=== PATIENT | female | born 1935 | race Caucasian/White ===

== ENCOUNTER → 2017-12-03 | Outpatient (CLI) | payer OTHER ==
[~2017-12-03] MED LIST: ASPI81EC PO; ERGO400 PO; FISH1000 PO; LEVSOD25 PO; LISHYD2012 PO; MULVITA PO; NEBI10 PO; TRAM50 PO
== END ==
LOC: LAB EV 11:44
DX: L02.419 Cutaneous abscess of limb, unspecified (principal)
CPT/HCPCS: 87070; 87205

== ENCOUNTER 2020-11-26 08:46 | Inpatient (IN) | payer OTHER ==
[~2020-11-26] VITALS: Ht 162.6 cm; Wt 64.1 kg
[~2020-11-26 08:46] MED LIST changes: -ASPI81EC PO; +ATOR80 PO; +Aspirin EC81 MG PO; +BENADRYL25 MG PO; +Bystolic20 MG PO; +CALCIUM CIT 311 EACH PO; +CARV25 PO; +CLOP75 PO; +LOPE2C PO; +ONDA4ODT MM; +PLAVIX75 MG PO; +TOCO1000 PO; +ZESTRIL40 M1 PO
[2020-11-26 09:07] LABS: BASOPHILS ABSOLUTE AUTO 0.05 K/mm3 (0.00-0.23); BASOPHILS PERCENT AUTO 1 % (0-2); EOSINOPHILS ABSOLUTE AUTO 0.13 K/mm3 (0.00-0.68); EOSINOPHILS PERCENT AUTO 2 % (0-6); Hematocrit 38.8 % (33.0-51.0); Hemoglobin 12.6 g/dL (11.5-16.0); IMMATURE GRAN ABSOLUTE AUTO 0.01 K/mm3 (0.00-0.10); IMMATURE GRAN PERCENT AUTO 0 % (0-1); LYMPHOCYTES ABSOLUTE AUTO 1.42 K/mm3 (0.84-5.20); LYMPHOCYTES PERCENT AUTO 24 % (21-46); MONOCYTES ABSOLUTE AUTO 1.02 K/mm3 (0.16-1.47); MONOCYTES PERCENT AUTO 17 % (4-13); Mean Corpuscular HGB 30.6 pg (26.0-34.0); Mean Corpuscular HGB Conc 32.5 g/dL (31.5-36.5); Mean Corpuscular Volume 94 fL (80-100); Mean Platelet Volume 9.7 fL (9.1-12.4); NEUTROPHILS ABSOLUTE AUTO 3.25 K/mm3 (1.96-9.15); NEUTROPHILS PERCENT AUTO 55 % (41-73); Platelet Count 233 K/mm3 (150-400); RDW Coefficient Variation 12.8 % (11.7-14.2); RDW Standard Deviation 44.3 fL (35.1-46.3); Red Blood Cell Count 4.12 M/mm3 (3.80-5.20); White Blood Cell Count 5.88 K/mm3 (4.00-11.30)
[2020-11-26 09:31] LABS: Albumin, Blood 2.8 g/dL (3.4-5.0); Albumin/Globulin Ratio 0.8 (0.8-1.8); Bilirubin, Total 0.4 mg/dL (0.1-1.0); Bun/Creatinine Ratio 18.4 (12.0-20.0); Calcium, Blood 9.1 mg/dL (8.5-10.1); Creatinine, Blood 0.98 mg/dL (0.40-1.00); Globulin, Blood 3.6 g/dL (2.2-4.0); Potassium, Blood 4.3 mmol/L (3.5-5.5); Total Protein, Blood 6.4 g/dL (6.4-8.2); Troponin I 0.275 ng/mL (0.000-0.040)
[2020-11-26 11:18] LABS: Free Thyroxine 1.4 ng/dL (0.70-1.60); Thyroid Stimulating Hormone 1.63 uIU/mL (0.360-4.800)
--- NOTE | 2020-11-26 19:44 | NUR ---
SUMMARY NO ACUTE CHANGES NOTED SINCE ADMISSION TO THE FLOOR, PT HAS DENIED ANY CP/PRESSURE, VSS, ON RA, CURRENLY IN SINUS R @ 68. CARDIOLOGY CONSULT CALLED PER DUE TO INCREASED TROPONIN LEVELS. PT IS A&O X4, RESP UNLABORED, RESTING QUIETLY IN BED, CALL LIGHT IN REACH. BED ALARM IS ON FOR SAFETY. PT ENC TO CALL DUE TO SYNCOPE EPISODES. REPORT GIVEN TO FERNANDO ORTEGA
--- NOTE | 2020-11-27 03:11 | NUR ---
SYNCOPAL EPISODE PT WAS UP TO BEDSIDE COMMODE AND HR DROPPED TO 40'S. PT WENT UNCONSCIOUS AND SLUMPED OVER. PT WAS SAT BACK UP, O2 VIA NC WAS PUT ON, PT STIMULATED WITH STURNAL RUB AND RESPONDED WITH GROAN. O2 SATS REMAINED ABOVE 90%, BP REMAINED ABOVE 166 SYSTOLIC. HR WAS IN THE 40'S FOR LESS THAN A MINUTE AND CAME BACK UP TO THE 60'S SLOWLY OVER ABOUT 3MIN. PT WAS PICKED UP AND PUT BACK IN BED. SKIN WAS COOL AND CLAMMY. PT BECAME MORE RESPONSIVE AND WAS ABLE TO ANSWER QUESTIONS. PT STATED FEELING NAUSEOUS, GAVE PRN ZOFRAN. PT STATED FEELING BAD AND REMAINED LAYING IN BED WITH HOB ELEVATED. WHOLE EVENT LASTED ABOUT 15 MINUTES FROM TIME PT HAD SYNCOPAL EPISODE TO TIME PT EAS COMFORTABLE AND SITTING IN BED. DROP IN HR MOST LIKLY CAUSED BY VAGAL STIMULATION ON COMMODE.
--- NOTE | 2020-11-27 07:41 | NUR ---
SHIFT SUMMARY PT WAS ALERT AND ORIENTED THROUGH MOST OF THE SHIFT. PT HAD A SYNCOPAL EPISODE WHEN UP TO BEDSIDE COMMODE, SEE PT NOTES. PT OTHERWISE COMFORTABLE. BP BECAME HYPERTENSIVE WHITH SYNCOPAL EPISODE UP TO 198/74. ORTHOSTATIC BP WAS POSITIVE. BP RANGED FROM 107-198 SYSTOLIC T/O SHIFT. HR IN THE 60'S OTHER THAN WHEN PT HAD DORY EPISODE INTO THE 40'S WITH PAUSES. PT STATED FEELING MUCH BETTER BY AM. ON ROOM AIR WITH O2 SATS IN THE 90'S.
--- NOTE | 2020-11-27 07:48 | NUR ---
AM NOTE A&Ox4; CALM AND COOPERATIVE WITH CARE. PT RESTING IN BED DURING SHIFT, PLANS FOR BEDREST. PT DENIES PAIN, CHEST PAIN, SOB, NAUSEA AND DIZZINESS (AT REST). DR QUIROZ TO BEDSIDE DISCUSSING THE OPTION OF PACEMAKER; PT PLANS TO DISCUSS WITH FAMILY PRIOR TO MAKING DECISION. EDUCATED PT ON PROCEDURE; QUESTIONS ANSWERED. PT ASKED TO GET UP TO BSC; PT EDUCATED ON PLANS FOR BEDREST AND PLACED ON BEDPAN. PER DR QUIROZ ORDERS, ATRIPINE AND EPI AT BEDSIDE AND APIXABAN D/C. VSS. WILL CONTINUE TO MONITOR.
--- NOTE | 2020-11-27 14:43 | NUR ---
ADMIT: 11/26/20 DISCHARGE: DX: Afib with RVR CC: [email or web address] ADMIT: 11/21/20 DISCHARGE: 11/24/20 DX: PANCREATITIS, ACUTE ADMIT: 11/17/20 DISCHARGE: 11/18/20 DX: CVA UMA CALL: PT AT HOME @ [phone] RESIDENCE: Home CAREGIVER: self DX: CAD, CKD-stage 3, HTN, Afib, see list DME: None CCM: None HOME HEALTH: None SUMMARY: Admit: 11/26/20 11/27/20- Pt has been readmitted. PT and OT have been ordered to be completed to ensure a safe d/c. Per chart review, pt had syncopal episode in the middle of the night last night and cardiology has been asked to consult to have pacemaker placed. If pt consents, she will be scheduled for for procedure. PT and OT will be held until after pacemaker has been placed.SPoke with pt and she is agreeable to have a pacemaker.-kjw ASSESSMENT: 1. Syncope with ground level fall, likely cardiac. 2. Acute coronary syndrome. 3. Atrial fibrillation with rapid ventricular response. 4. Mild acute diastolic congestive heart failure. 5. Hypertension. 6. Hyperlipidemia. 7. Recent hospitalization for transient ischemic attack. 8. Rest recent hospitalization for acute pancreatitis, which was presumed to be due to atorvastatin. 9. Hypothyroidism. PLAN: 1. Admit to [facility]. 2. Observation status. 3. Her CHADS2 score is at least 4. Therefore, I discussed with the patient the benefits and risks of starting anticoagulation therapy. The patient has agreed and at present I will start her on Eliquis 5 mg b.i.d. 4. I will hold off on her aspirin and Plavix since Eliquis is being started. 5. We will resume her home medications including beta blockers, LAURA inhibitors and thyroid replacement therapy. 6. We will start her on IV diuretics. 7. Cardiology consultation will be obtained. In view of significantly elevated troponins and new onset atrial fibrillation. 8. I will defer to Cardiology in view of adding any other rate controlled medications besides continuing Coreg. 9. Gastrointestinal prophylaxis with Pepcid. 10. OT and PT evaluation for safe discharge coordination since this is her 3rd hospitalization in 10 days. 11. We will follow up with Cardiology recommendations. 12. I will not order an echocardiogram since it was done one week ago. ADMIT 11/21/20 11/25/20- PER CHART NOTE FROM DR. LARKIN ON 11/23/20, PT WAS NOT READY TO DISCHARGE ON 11/23/20. SHE STAYED ANOTHER NIGHT AND WAS D/C ON 11/24/20. -[facility] 11/23/20- PER CHART REVIEW WITH DR. LARKIN, PT IS SCHEDULED TO BE D/C TODAY. WENT AND SPOKE WITH PT, REVIEWED THE UMA LETTER WITH HER. SHE STATED THAT HER STEP-DAUGHTER IS UP HERE FROM [place] AND SHE WOULD BE THE ONE TO COME GET HER. HER STEP-DAUGHTER CAN HELP INCOME TAX ANALYST HER MEDICATIONS. SHE DIDN'T NOT IDENTIFY ANY CARE NEEDS AT HER HOME AT THIS TIME. SHE ASKED THAT UMA CALL BE PLACED TO HER. SHE ACKNOWLEDGED UNDERSTANDING OF THE UMA LETTER. -[facility] 11/22/20- PER CHART REVIEW WITH DR. LARKIN, EVERYTHING HAS BEEN PLACED ON HOLD DUE TO PT'S CODE BLUE. HE WOULD LIKE TO HAVE THE PT OBSERVED TO DETERMINE THE TYPE OF CARE SHE WILL NEED. SHE WAS A RE-ADMIT. NO EST ETA FOR DISCHARGE AT THIS TIME. -[facility] 11/22/19 CODE BLUE CALLED, POSSIBLE VASO VAGEL, MOVED TO ICU 7 FOR OBSERVATION. -[facility] ADMIT: 11/17/20 11/18/20- PER DR. BAKER, PT IS GOING TO BE D/C TODAY. PT WAS ADMITTED IN THE MIDDLE OF THE NIGHT FOR OBSERVATION. SHE HAD AN ECHOCARDIOGRAM COMPLETED TODAY. SPOKE WITH PT, REVIEWED UMA LETTER. SHE WILL HAVE HER COUSIN TAKE HER HOME. SHE CAN ALL ON HER FAMILY IN THE AREA OF SHE NEEDS HELP. SHE WOULD LIKE AN INPERSON VISIT FOR TO FOLLOW-UP APPT. PT ACKNOWLEDGED UNDERSTANDING OF THE UMA LETTER AND DID NOT IDENTIFY ANY NEEDS AT THIS TIME.-MCKENNA
--- NOTE | 2020-11-27 18:22 | NUR ---
SHIFT SUMMARY PT A&Ox4;CALM AND COOPERATIVE WITH CARE. PT ON BEDREST; BEDPAN IN BED. PT DENIES PAIN, CHEST PAIN, NAUSEA, DIZZINESS (AT REST) AND SOB. NO EVENT ON TELE DURING SHIFT. ELEVATED BP NOTED, VSS. NO OTHER ACUTE CHANGES NOTED. PT AGREEABLE TO HAVE PACEMAKER PLACED. WILL CONTINUE TO MONITOR UNTIL REPORT GIVEN TO ONCOMING RN.
[2020-11-28 04:55] LABS: International Normalized Ratio 1.04; Prothrombin Time Results 11.1 Sec (9.7-11.5)
--- NOTE | 2020-11-28 07:25 | NUR ---
SHIFT SUMMARY: PATIENT A/OX3. HAS DENIED PAIN THROUGHOUT THE SHIFT. NO CHANGES ON TELE, SINUS RHYTHM WITH PACS IN THE 60'S. HAS DENIED CHEST PAIN, DIZZINESS, AND LIGHTHEADEDNESS. BEDREST. HEPARIN INFUSING PER EMAR. PLAN IS FOR PACEMAKER PLACEMENT ON THURSDAY. REPORT GIVEN TO ONCOMING RN.
--- NOTE | 2020-11-28 11:10 | NUR ---
AM NOTE PT A&Ox4; CALM AND COOPERATIVE WITH CARE. BEDREST; PT USING BEDPAN. NO TELE EVENTS NOTED. PT DENIES PAIN, CHEST PAIN, NASUEA, SOB, AND DIZZINESS. VSS. NO OTHER ACUTE CHANGES NOTED. WILL CONTINUE TO MONITOR.
--- NOTE | 2020-11-28 18:12 | NUR ---
SHIFT SUMMARY NO CHANGES T/O SHIFT. PT CONTINUES ON BEDREST. DENIES PAIN, SOB, NAUSEA AND DIZZINESS. VSS. NO OTHER ACUTE CHANGES NOTED DURING SHIFT. WILL CONTINUE TO MONITOR UNITL REPORT GIVEN TO ONCOMING RN.
--- NOTE | 2020-11-28 19:20 | NUR ---
ASSUMED CARE RECEIVED BEDSIDE REPORT FROM SHANNON CLAYTON; PT ALERT AND CONVERSING W/ STAFF; VSS; NSR NOTED ON TELE; HGP GTT VERIFIED @ 11 U/KG/HR; EDUCATION PROVIDED ON NPO AT MIDNIGHT IN PREPARATION FOR PROCEDURE; NO DISTRESS NOTED; CALL LIGHT IN REACH; BED IN LOWEST POSITION.
[2020-11-28 22:30] LABS: Influenza A, PCR Negative (NEGATIVE); Influenza B, PCR Negative (NEGATIVE); Resp Syncytial Virus, PCR Negative (NEGATIVE); SARS-Cov-2 (COVID-19) PCR, MMC Negative (NEGATIVE)
[2020-11-29 02:03] LABS: BASOPHILS ABSOLUTE AUTO 0.05 K/mm3 (0.00-0.23); BASOPHILS PERCENT AUTO 1 % (0-2); EOSINOPHILS PERCENT AUTO 3 % (0-6); Hematocrit 35.6 % (33.0-51.0); Hemoglobin 11.8 g/dL (11.5-16.0); IMMATURE GRAN ABSOLUTE AUTO 0.01 K/mm3 (0.00-0.10); IMMATURE GRAN PERCENT AUTO 0 % (0-1); LYMPHOCYTES ABSOLUTE AUTO 2.36 K/mm3 (0.84-5.20); LYMPHOCYTES PERCENT AUTO 34 % (21-46); MONOCYTES ABSOLUTE AUTO 0.99 K/mm3 (0.16-1.47); MONOCYTES PERCENT AUTO 14 % (4-13); Mean Corpuscular HGB 30.3 pg (26.0-34.0); Mean Corpuscular HGB Conc 33.1 g/dL (31.5-36.5); Mean Corpuscular Volume 91 fL (80-100); Mean Platelet Volume 9.5 fL (9.1-12.4); NEUTROPHILS ABSOLUTE AUTO 3.38 K/mm3 (1.96-9.15); NEUTROPHILS PERCENT AUTO 48 % (41-73); Platelet Count 270 K/mm3 (150-400); RDW Coefficient Variation 12.2 % (11.7-14.2); RDW Standard Deviation 41.1 fL (35.1-46.3); White Blood Cell Count 6.99 K/mm3 (4.00-11.30)
[2020-11-29 02:19] LABS: International Normalized Ratio 1.01; Prothrombin Time Results 10.8 Sec (9.7-11.5)
[2020-11-29 02:20] LABS: Albumin, Blood 2.8 g/dL (3.4-5.0); Albumin/Globulin Ratio 0.8 (0.8-1.8); Bilirubin, Total 0.4 mg/dL (0.1-1.0); Calcium, Blood 8.8 mg/dL (8.5-10.1); Creatinine, Blood 1.27 mg/dL (0.40-1.00); Globulin, Blood 3.4 g/dL (2.2-4.0); Total Protein, Blood 6.2 g/dL (6.4-8.2)
--- NOTE | 2020-11-29 06:20 | NUR ---
SHIFT SUMMARY PT A&O; FORGETFUL AT TIMES; STATES SHE DOES NOT KNOW WHAT MEDS SHE TAKES AND STATES THEY HAVE BEEN CHANGED NUMEROUS TIMES; EDUCATED PT ON PO MEDS, ADDITIONAL FOLLOW UP NEEDED; VSS; NSR NOTED ON TELE W/ HR 60'S; HEP GTT @ 11 U/KG/HR; DENIES CHEST PAIN; PT ON STRICT BEDREST; ABLE TO RAISE HIPS FOR BEDPAN USE; PT STATES SHE HAS NOT HAD A BOWEL MOVEMENT FOR A WEEK; PRUNE JUICE BROUGHT TO PT SHE STATES SHE WOULD LIKE TO TRY THAT FIRST BEFORE STARTING A MEDICATION; O2 SATS >93 ON RA; DENIES SOB; COVID SWAB NEGATIVE FOR SEALER OPERATOR PROCEDURE; PT NPO AT MIDNIGHT IN PREPARATION; CALL LIGHT IN REACH; BED IN LOWEST POSITION; WILL CONTINUE TO MONITOR CLOSELY UNTIL HAND OFF TO DAY SHIFT RN.
--- NOTE | 2020-11-29 14:37 | NUR ---
Pt arrived from [facility] following pacemaker surgery. She is awake, alert, and oriented. Vital signs stable. Left chest wall surgical site is without bleeding, bruising or swelling. Dressing is clean, dry and intact. Pt was assisted up to bedside commode to void at this time. Her daughter is at the bedside. PT is c/o burning feeling in her throat, and asking for ice water to drink, which was given to her. STates she was given anti nausea medication in the [facility] before returning to PCU. Jennifer ORTEGA from [facility] told me that the pt received 4 mg of zofran.
--- NOTE | 2020-11-29 17:55 | NUR ---
NO ACUTE EVENTS THIS SHIFT. VSS, PATIENT ALERT AND ORIENTED. PATIENT WENT FOR PACEMAKER PLACEMENT TODAY, TOLERATED WELL. UPON RETURN VSS, NO SIGNS OF DISCHARGE AT PACER SURGICAL SITE. PATIENT'S L. ARM IN SLING, PATIENT INSTRUCTED IN MOVEMENT RESTRICTIONS POST-PACEMAKER PLACEMENT. PATIENT ENDORSES SOME PAIN, ENDORSES RELIEF WITH TYLENOL ADMIN PER EMAR.
--- NOTE | 2020-11-30 06:03 | NUR ---
SHIFT SUMMARY PT A&O X 3-4; PT STATES SHE CANNOT KEEP TRACK OF NEW MEDS / DAY / AND STATES SHE FEELS HER "MIND IS SLIPPING"; VSS; NSR NOTED ON TELE; ICE PACK BROUGHT TO PT FOR PAIN / SWELLING; TYLENOL ADMINISTERED PER EMAR; CEFAZOLIN IV ADMINISTERED X 2 POST PACER PROTOCOL; O2 SATS >93 ON RA; DENIES SOB; CALL LIGHT IN REACH; BED IN LOWEST POSITION; WILL CONTIUE TO MONITOR CLOSELY UNTIL HAND OFF TO DAY SHIFT RN.
--- NOTE | 2020-11-30 14:47 | NUR ---
ADMIT: 11/26/20 DISCHARGE: DX: Afib with RVR CC: [email or web address] ADMIT: 11/21/20 DISCHARGE: 11/24/20 DX: PANCREATITIS, ACUTE ADMIT: 11/17/20 DISCHARGE: 11/18/20 DX: CVA UMA CALL: PT AT HOME @ [phone] RESIDENCE: Home CAREGIVER: self DX: CAD, CKD-stage 3, HTN, Afib, see list DME: None CCM: None HOME HEALTH: None SUMMARY: Admit: 11/26/20 11/30/20- PT and OT saw pt today, they are recommending Home Health come into the home and address barriers that are in the home. They also report that the pt granddaughter is up from [place] staying with her. Est ETA for d/c at this time is delayed until Thursday per doctor due to orthostatics. -guillermina
--- NOTE | 2020-11-30 16:26 | NUR ---
ADMIT: 11/26/20 DISCHARGE: DX: Afib with RVR CC: kwilcox ADMIT: 11/21/20 DISCHARGE: 11/24/20 DX: PANCREATITIS, ACUTE ADMIT: 11/17/20 DISCHARGE: 11/18/20 DX: CVA UMA CALL: PT AT HOME @ [phone] RESIDENCE: Home CAREGIVER: self DX: CAD, CKD-stage 3, HTN, Afib, see list DME: None CCM: None HOME HEALTH: None SUMMARY: Admit: 11/26/20 11/30/20- PT and OT saw pt today, they are recommending Home Health come into the home and address barriers that are in the home. They also report that the pt granddaughter is up from [place] staying with her. Est ETA for d/c at this time is delayed until Thursday per doctor due to orthostatics. Reviewed UMA letter with pt. She acknowledged understanding. Pt asked for brochures for home health. Handed them to pt and step-daughter was in the room. She stated that they are not comfortable with the pt living on her own anymore and they are looking at assisted living places. Provided her a list of facilities to contact.-guillermina
--- NOTE | 2020-11-30 17:46 | NUR ---
NO SIGNS OF DISCHARGE AT PACER SURGICAL SITE. PATIENT WORKED WITH PT/OT THIS SHIFT, PATIENT ENDORSED FEELING LIGHTHEADED WITH AMBULATION. POSITIVE FOR ORTHOSTATIC VITALS, PATIENT HAD TO SIT DOWN FROM STANDING AT ONE POINT THIS SHIFT DUE TO DIZZINESS. PATIENT IS ALERT AND ORIENTED, COOPERATIVE WITH CARE AND MOTIVATED TO PARTICIPATE IN RANGE OF MOTION WITH LEFT ARM, PATIENT IS CAREFUL TO FOLLOW ACTIVITY PRECAUTIONS. PATIENT SITTING UP AT EDGE OF BED FOR DINNER, TOLERATING WELL. PATIENT ENDORSED SOME PAIN THIS SHIFT, RELIEF NOTED WITH TYLENOL.
[2020-12-01 04:53] LABS: BASOPHILS ABSOLUTE AUTO 0.06 K/mm3 (0.00-0.23); BASOPHILS PERCENT AUTO 1 % (0-2); EOSINOPHILS ABSOLUTE AUTO 0.23 K/mm3 (0.00-0.68); EOSINOPHILS PERCENT AUTO 2 % (0-6); Hematocrit 37.4 % (33.0-51.0); Hemoglobin 12.4 g/dL (11.5-16.0); IMMATURE GRAN ABSOLUTE AUTO 0.03 K/mm3 (0.00-0.10); IMMATURE GRAN PERCENT AUTO 0 % (0-1); LYMPHOCYTES ABSOLUTE AUTO 1.64 K/mm3 (0.84-5.20); LYMPHOCYTES PERCENT AUTO 15 % (21-46); MONOCYTES ABSOLUTE AUTO 0.97 K/mm3 (0.16-1.47); MONOCYTES PERCENT AUTO 9 % (4-13); Mean Corpuscular HGB 30.5 pg (26.0-34.0); Mean Corpuscular HGB Conc 33.2 g/dL (31.5-36.5); Mean Corpuscular Volume 92 fL (80-100); Mean Platelet Volume 9.4 fL (9.1-12.4); NEUTROPHILS ABSOLUTE AUTO 8.03 K/mm3 (1.96-9.15); NEUTROPHILS PERCENT AUTO 73 % (41-73); Platelet Count 297 K/mm3 (150-400); RDW Coefficient Variation 12.3 % (11.7-14.2); RDW Standard Deviation 41.8 fL (35.1-46.3); Red Blood Cell Count 4.07 M/mm3 (3.80-5.20); White Blood Cell Count 10.96 K/mm3 (4.00-11.30)
[2020-12-01 05:22] LABS: Bun/Creatinine Ratio 21.1 (12.0-20.0); Calcium, Blood 9.4 mg/dL (8.5-10.1); Creatinine, Blood 1.42 mg/dL (0.40-1.00); Potassium, Blood 4.4 mmol/L (3.5-5.5)
--- NOTE | 2020-12-01 06:38 | NUR ---
SHIFT SUMMARY NO ACUTE CHANGES THIS SHIFT. PT A&OX4. SP02>92% ON RA. TELEMETRY READS SR, HR 80'S. PT POST PACEMAKER IMPLANT, DRESSING C/D/I. PT WORE L ARM IN SLING T/O NIGHT. PT DENIED PAIN. PT SLEPT MOST OF SHIFT. CALL LIGHT IN REACH. WILL GIVE REPORT TO ONCOMING NURSE.
--- NOTE | 2020-12-01 17:25 | NUR ---
NO ACUTE EVENTS THIS SHIFT. PATIENT POSITIVE FOR ORTHOSTATIC VITALS WHILE WORKING WITH PHYSICAL THERAPY THIS SHIFT, DR. COBOS NOTIFIED. PATIENT COMPLAINED OF 4/10 PAIN L. CHEST WALL AND SHOULDER, RELIEF NOTED WITH TYLENOL PER EMAR. PATIENT ALERT AND ORIENTED, COOPERATIVE WITH CARE. PATIENT DENIED CHEST PAIN THIS SHIFT, NO NEW DISCHARGE NOTED AT PACER SURGICAL SITE.
--- NOTE | 2020-12-02 05:52 | NUR ---
SHIFT SUMMARY NO ACUTE CHANGES THIS SHIFT. PT A&OX4. SP02>92% ON RA. TELEMETRY READS PACED, HR 70'S. PT IS POST PACE MAKER INSERTION, L CHEST DRESSING C/D/I. PT WORE ARM IN SLING CONTINUOUSLY T/O NIGHT. PT DENIES PAIN. PT SLEPT ALMOST THE ENTIRE SHIFT EXCEPT FOR UP TO BSC AND VITALS. PT DID C/O OF NOT HAVING A BM FOR A WEEK. CALL PLACED TO MD CRZU FOR BOWEL CARE. BOWEL CARE TO START IN AM. CALL LIGHT IN REACH. WILL GIVE REPORT TO ONCOMING SHIFT NURSE.
--- NOTE | 2020-12-02 18:17 | NUR ---
SHIFT SUMMARY PT IS ALERT AND ORIENTEDx4. PACER INCISION SITE C/D/I, SLING REMAINS IN PLACE. TODAY PT WAS C/O CONSTIPATION, BOWEL CARE ORDERS RECIEVED AND PT HAD SMALL BM TODAY. THIS MORNING PT REPORTED DIZZINESS WITH SITTING AND STANDING. THIS EVENING PT REPORTS DIZZINESS IS IMPROVING. IVF STARTED THIS EVENING x1 LITER PER ORDERS. TELEMETERY WAS SHOWING SINUS RHYTHM, VITALS HAVE REMAINED STABLE. PT'S STATUS WAS CHANGED TO MEDICAL WITH TELEMETERY TODAY.
--- NOTE | 2020-12-03 05:24 | NUR ---
SHIFT SUMMARY NO ACUTE CHANGES THIS SHIFT. PT A&OX4. SP02 >92% ON RA. TELEMETRY READS SR, HR 70'S. ORTHOSTATIC BP DONE BEGINNING OF SHIFT W/ 18 POINT SYSTOLIC CHANGE. PT DENIED ANY DIZZINESS THIS SHIFT WHILE STANDING, BUT STATED SHE DID EXPERIENCE IT DURING THE DAY. PT POST PACEMAKER (11/29), DRESSING C/D/I. PT WORE ARM SLING ALL SHIFT. PT C/O OF L SHOULDER PAIN ONLY WHEN AMBULATING, STATED NO PAIN AT REST. PT UP TO BSC MULTIPLE TIMES THIS SHIFT W/ MINIMAL ASSISTANCE. IV FLUIDS INFUSED PER EMAR. CALL LIGHT IN REACH. WILL GIVE REPORT TO ONCOMING SHIFT.
--- NOTE | 2020-12-03 14:49 | NUR ---
SUMMARY: ADMIT: 11/26/20 12/03/20- PER CHART REVIEW WITH DR. KNOX, PT DID WELL WITH PT AND OT, SO THE RECOMMENDATION FOR SNF HAS CHANGED TO HOME HEALTH. VISITED WITH PT TODAY, SHE WILL BE GOING TO STAY WITH HER NIECE UNTIL THEY FIND AN ASSISTED LIVING PLACE FOR THE PATIENT AND THEN WILL SELL HER HOME. EST. ETA FOR DISCHARGE IS TOMORROW. PT'S STEP-DAUGHTER JESSE MAC ASKED TO SPEAK WITH THE DOCTOR. PROVIDED HIM WITH HER CONTACT INFORMATION. -MCKENNA 12/02/20- PER CHART REVIEW WITH DR. COBOS, PT IS NOW RECOMMENDING SNF DUE TO PT DECONDITIONING. EST. ETA FOR DISCHARGE PER DOCTOR WILL BE THURSDAY OR THURSDAY. -MCKENNA
--- NOTE | 2020-12-03 17:59 | NUR ---
SHIFT SUMMARY: PATIENT IS ALERT AND ORIENTED X4. SHE IS ON ROOM AIR AND TELE IS SHOWING SINUS RHYTHM. VITAL SIGNS STABLE. L CHEST DRESSING FROM PACER PLACED ON 11/29. DRESSING C/D/I. PT REPORTS MINIMAL SORNESS BUT DENIES CHEST PAIN AND PRESSURE. PT WEARING AND COMPLIENT WITH ARM SLING THIS SHIFT. DAUGHTER IN LAW JESSE IN TO SEE PATIENT. JESSE REQUESTED TOMORROW WHEN THE DOCTOR CAME IN TO CALL HER SINCE "SALVADOR FORGETS SOME OF THE THINGS HE TELLS HER". BOWEL CARE CONTINUED. UP TO USE BEDSIDE COMMODE. PT DENIES DIZZINESS WHEN UP. PHYSICAL THERAPY IN TO SEE PATIENT, ABLE TO WALK AROUND UNIT AND PRATICE ON STAIRS. NO ACUTE CHANGES THIS SHIFT. WILL CONTINUE TO MONITOR AND REPORT OFF.
[2020-12-04 04:11] LABS: BASOPHILS ABSOLUTE AUTO 0.03 K/mm3 (0.00-0.23); BASOPHILS PERCENT AUTO 0 % (0-2); EOSINOPHILS ABSOLUTE AUTO 0.11 K/mm3 (0.00-0.68); EOSINOPHILS PERCENT AUTO 1 % (0-6); Hematocrit 31.3 % (33.0-51.0); Hemoglobin 10.3 g/dL (11.5-16.0); IMMATURE GRAN ABSOLUTE AUTO 0.04 K/mm3 (0.00-0.10); IMMATURE GRAN PERCENT AUTO 0 % (0-1); LYMPHOCYTES ABSOLUTE AUTO 1.64 K/mm3 (0.84-5.20); LYMPHOCYTES PERCENT AUTO 18 % (21-46); MONOCYTES PERCENT AUTO 10 % (4-13); Mean Corpuscular HGB 30.5 pg (26.0-34.0); Mean Corpuscular HGB Conc 32.9 g/dL (31.5-36.5); Mean Corpuscular Volume 93 fL (80-100); Mean Platelet Volume 9.7 fL (9.1-12.4); NEUTROPHILS ABSOLUTE AUTO 6.23 K/mm3 (1.96-9.15); NEUTROPHILS PERCENT AUTO 70 % (41-73); Platelet Count 259 K/mm3 (150-400); RDW Coefficient Variation 12.6 % (11.7-14.2); RDW Standard Deviation 43.3 fL (35.1-46.3); Red Blood Cell Count 3.38 M/mm3 (3.80-5.20); White Blood Cell Count 8.95 K/mm3 (4.00-11.30)
[2020-12-04 04:31] LABS: Albumin, Blood 2.6 g/dL (3.4-5.0); Albumin/Globulin Ratio 0.8 (0.8-1.8); Bilirubin, Total 0.4 mg/dL (0.1-1.0); Calcium, Blood 8.9 mg/dL (8.5-10.1); Creatinine, Blood 1.03 mg/dL (0.40-1.00); Globulin, Blood 3.2 g/dL (2.2-4.0); Magnesium, Blood 2.6 mg/dL (1.6-2.4); Phosphorus, Blood 2.9 mg/dL (2.5-4.9); Potassium, Blood 4.6 mmol/L (3.5-5.5); Total Protein, Blood 5.8 g/dL (6.4-8.2)
--- NOTE | 2020-12-04 06:10 | NUR ---
SHIFT SUMMARY PATIENT VERY CHEERFUL AND PLEASENT THROUGHOUT THE NIGHT. PATIENT APPEARED TO SLEEP WELL LAST NIGHT. PATIENT REPORTS SHE IS LOOKING FORWARD TO GOING HOME. LEFT ARM REMAINED IN SLING THROUGHOUT THE NIGHT. PATIENT SBA TO THE BSC SEVERAL TIMES LAST NIGHT. PATIENT CURRENTLY APPEARS TO BE SLEEPING, RESPIRATIONS EVEN AND UNLABORED AT THIS TIME.
[2020-12-04] MEDS ORDERED: METO25ER PO (11:45)
[2020-12-04] MEDS ORDERED: XARELTO20 MG PO (11:48)
--- NOTE | 2020-12-04 14:26 | NUR ---
DISCHARGE/SUMMARY: PT IS ALERT AND ORIENTED X4. VITAL SIGNS STABLE. ON ROOM AIR. TELE SHOWING NSR WITH HR IN THE 70's. DENIES CHEST PAIN, PRESSURE AND DIZZINESS. PT STATES SHE IS "FEELING GOOD AND READY TO GO HOME". NO ACUTE CHANGES. DISCHARGE AND IMPLANTED PACEMAKER INSTRUCTIONS REVIEWED WITH QUESTIONS ANSWERED. DISCHARGED BY WHEELCHAIR AND PICKED UP BY AYSE IN [place].
== END 2020-12-04 14:09 | disposition home health service (06) | DRG 242 ==
LOC: ER 08:46 → PCU 08:47 → ER 08:47 → PCU 12:13
PROVIDERS: Emergency Medicine; Hospitalist; Internal Medicine Cardiovascular Disease; Pharmacist; ADMIT Internal Medicine
PROC: 0JH606Z Insertion of Pacemaker, Dual Chamber into Chest Subcutaneous Tissue and Fascia, Open Approach (ICD-10-PCS; principal; 2020-11-29)
PROC: 02HK3JZ Insertion of Pacemaker Lead into Right Ventricle, Percutaneous Approach (ICD-10-PCS; 2020-11-29)
PROC: 02H63JZ Insertion of Pacemaker Lead into Right Atrium, Percutaneous Approach (ICD-10-PCS; 2020-11-29)
DX: I49.5 Sick sinus syndrome (principal); I50.31 Acute diastolic (congestive) heart failure; E87.1 Hypo-osmolality and hyponatremia; I24.8 Other forms of acute ischemic heart disease; W18.30XA Fall on same level, unspecified, initial encounter; Y93.9 Activity, unspecified; Y92.000 Kitchen of unspecified non-institutional (private) residence as the place of occurrence of the external cause; E78.5 Hyperlipidemia, unspecified; E03.9 Hypothyroidism, unspecified; Z79.82 Long term (current) use of aspirin; Z66 Do not resuscitate; Z79.01 Long term (current) use of anticoagulants; I48.0 Paroxysmal atrial fibrillation; I11.0 Hypertensive heart disease with heart failure; I95.1 Orthostatic hypotension; Z20.822 Contact with and (suspected) exposure to COVID-19
CPT/HCPCS: 0241U; 33208; 33228; 36415; 70450; 71045; 71046; 72125; 80048; 80053; 80400; 82530; 82533; 83735; 83880; 84100; 84439; 84443; 84484; 85025; 85610; 85730; 86850; 86900; 86901; 93005; 93010; 96374; 96375; 96376; 97110; 97116; 97162; 97165; 97530; 97535; 99152; 99153; 99285-25; A9270; C1785; C1894; C1898; G0378; J0690; J0834; J1644; J1940; J2250; J2405; J3010; J7030; J7040

== ENCOUNTER 2021-02-02 02:18 | Emergency (ER) | payer OTHER ==
[~2021-02-02] VITALS: Ht 162.6 cm; Wt 64.0 kg
[~2021-02-02 02:18] MED LIST changes: +METO25ER PO; +XARELTO20 MG PO
[2021-02-02] MEDS ORDERED: UBID10 PO (03:06)
== END 2021-02-02 04:15 | disposition home or self-care (01) ==
LOC: ER 02:18
DX: R04.0 Epistaxis (principal); E78.5 Hyperlipidemia, unspecified; I10 Essential (primary) hypertension; Z79.01 Long term (current) use of anticoagulants; Z79.899 Other long term (current) drug therapy; Z95.0 Presence of cardiac pacemaker; Z87.891 Personal history of nicotine dependence
CPT/HCPCS: 30901; 99283-25; A9270

== ENCOUNTER 2021-05-21 10:50 | Emergency (ER) | payer OTHER ==
[~2021-05-21] VITALS: Ht 162.6 cm; Wt 59.0 kg
[~2021-05-21 10:50] MED LIST changes: +UBID10 PO
[2021-05-21 11:24] LABS: BASOPHILS ABSOLUTE AUTO 0.04 K/mm3 (0.00-0.23); BASOPHILS PERCENT AUTO 1 % (0-2); EOSINOPHILS ABSOLUTE AUTO 0.07 K/mm3 (0.00-0.68); EOSINOPHILS PERCENT AUTO 1 % (0-6); Hematocrit 33.6 % (33.0-51.0); Hemoglobin 10.7 g/dL (11.5-16.0); IMMATURE GRAN ABSOLUTE AUTO 0.02 K/mm3 (0.00-0.10); IMMATURE GRAN PERCENT AUTO 0 % (0-1); LYMPHOCYTES ABSOLUTE AUTO 1.18 K/mm3 (0.84-5.20); LYMPHOCYTES PERCENT AUTO 17 % (21-46); MONOCYTES ABSOLUTE AUTO 0.65 K/mm3 (0.16-1.47); MONOCYTES PERCENT AUTO 10 % (4-13); Mean Corpuscular HGB 30.1 pg (26.0-34.0); Mean Corpuscular HGB Conc 31.8 g/dL (31.5-36.5); Mean Corpuscular Volume 94 fL (80-100); Mean Platelet Volume 9.8 fL (9.1-12.4); NEUTROPHILS ABSOLUTE AUTO 4.89 K/mm3 (1.96-9.15); NEUTROPHILS PERCENT AUTO 71 % (41-73); Platelet Count 298 K/mm3 (150-400); RDW Coefficient Variation 12.7 % (11.7-14.2); RDW Standard Deviation 44.6 fL (35.1-46.3); Red Blood Cell Count 3.56 M/mm3 (3.80-5.20); White Blood Cell Count 6.85 K/mm3 (4.00-11.30)
[2021-05-21 11:42] LABS: Alanine Aminotransfer (ALT/SGP 16 U/L (12-78); Albumin, Blood 3.4 g/dL (3.4-5.0); Albumin/Globulin Ratio 0.9 (0.8-1.8); Alk Phos 78 U/L (50-136); Anion Gap 7 mmol/L (6-16); Aspartate Aminotrans (AST/SGOT 20 U/L (12-37); Bilirubin, Total 0.7 mg/dL (0.1-1.0); Blood Urea Nitrogen 32 mg/dL (8-24); Bun/Creatinine Ratio 26.2 (12.0-20.0); CO2, Blood 25 mmol/L (21-32); Calcium, Blood 9.4 mg/dL (8.5-10.1); Chloride, Blood 105 mmol/L (98-108); Creatinine, Blood 1.22 mg/dL (0.40-1.00); Globulin, Blood 3.7 g/dL (2.2-4.0); Glomerular Filtration Rate 44 (60-); Glucose, Blood 128 mg/dL (70-99); Potassium, Blood 4.4 mmol/L (3.5-5.5); Sodium, Blood 137 mmol/L (136-145); Total Protein, Blood 7.1 g/dL (6.4-8.2); Troponin I <0.015 ng/mL (0.000-0.040)
== END 2021-05-21 13:00 | disposition home or self-care (01) ==
LOC: ER 10:50
PROVIDERS: Emergency Medicine
DX: R55 Syncope and collapse (principal); I10 Essential (primary) hypertension; E03.9 Hypothyroidism, unspecified; E78.00 Pure hypercholesterolemia, unspecified; Z86.73 Personal history of transient ischemic attack (TIA), and cerebral infarction without residual deficits; Z79.01 Long term (current) use of anticoagulants; Z79.899 Other long term (current) drug therapy
CPT/HCPCS: 71045; 80053; 83880; 84484; 85025; 93005; 93010; 99284-25